=== PATIENT | female | born 1955 | race Caucasian/White ===

== ENCOUNTER → 2018-08-07 | Outpatient (CLI) | payer OTHER, MEDICAID ==
[~2018-08-07] MED LIST: ASPIRIN325 PO; KLONOPIN0.5 MG PO; LISINOPRIL-HCT1 EACH PO; PREDNISONE 10 M10 MG PO; SPIRIVA INH; SYMBICORT160 MCG/4. INH; ULTRAM 50MG TAB50 MG PO; ZOCOR 10 MG TAB10 MG PO
--- NOTE | 2018-09-17 15:56 | PAINCON ---
[address] [address] PAIN MANAGEMENT CONSULTATION Name: FERNANDEZ FORBES Room: [facility] Deborah#: [id number] Admission: 08/07/18 Attend Phys: Missy Wade MD Discharge: Date of : 55 Report #: [id number] THIS REPORT FOR: //name// CC: Missy Patton DATE OF SERVICE: 08/07/2018 CHIEF COMPLAINT: Back pain. HISTORY OF PRESENT ILLNESS: The patient is a 63-year-old female who has been referred to the pain clinic for evaluation. The patient is having pain in her low back as well as pain into both legs, left side more problematic than the right. She is experiencing continuous cramping sensation. Some pain that radiates down into her legs into her feet. She is currently on a steroid taper. This is her second treatment of a Medrol dose type steroid regimen. Rates her pain as a 6/10. Has tried tramadol to help control the pain. Did try tizanidine, but did not feel that this medication was very helpful. Has had an MRI. MRI showed an annular tear and a protrusion at L5-S1 which caused some mass effect on the exiting L5 nerve root. She denies any trauma. She woke up about one month ago and noticed that the pain was there. It was continued to be problematic. Limited her ability to engage in activities of daily living such as walking up and down stairs. She described it as constant, cramping and stabbing. ALLERGIES: No known drug allergies. MEDICATIONS: Aspirin 325 mg, Symbicort 160/4.5 two puffs twice daily, Klonopin 0.5 mg b.i.d., lisinopril/hydrochlorothiazide 10/12.5, prednisone 10 mg tablets daily, Zocor 10 mg, Spiriva inhaler 2 puffs, Ultram 50 mg b.i.d. PAST MEDICAL HISTORY: Tubal ligation, right knee replacement, septic on life support, one month rehab, fractured left hip 2016, uncontrollable diarrhea 2017. C. diff 2017, hospitalized x2, 03/2018. COPD, anxiety, lumbar radiculopathy, right low back, hypertension, hyperlipidemia, chronic respiratory failure history, hypoxia, hospitalized with pneumonia on numerous occasions. PAST SURGICAL HISTORY: Elbow surgery in 2007, carpal tunnel release 2001, hysterectomy in 1985. Shaved biopsy in neck 2011. REVIEW OF SYSTEMS: Fatigue, weakness, headaches, sore throat, voice changes, shortness of breath with walking flat, chronic frequent coughs, painful bowel movements, constipation, wakens at night to urinate, numbness and tingling sensation, joint pain, joint stiffness, weakness of muscles and joints, muscle pain, cramps, back pain, difficulty walking, [place] [address] PAIN MANAGEMENT CONSULTATION Name: FERNANDEZ FORBES Room: [facility]#: [id number] Admission: 08/07/18 Attend Phys: Missy Wade MD Discharge: Date of : 55 Report #: [id number] LABORATORY DATA: MRI of the lumbar spine dated 07/08/2018. 1. L2-L3, there is no significant disk bulge or herniation. There is no significant spinal stenosis. 2. L3-L4, there is no significant disk bulge or herniation. There is no significant spinal stenosis. 3. L4-L5 mild disk bulging. Effacement of the thecal sac. No high-grade stenosis. 4. L5-S1 small right lateral annular tear and protrusion extending into the right neural foramen. Moderate mass effect upon the exiting L4-L5 nerve root noted. PAIN CLINIC ASSESSMENT/PQRS: 1. History of osteoarthritis. The patient is not being treated for osteoarthritis or rheumatoid arthritis. 2. Height 5 feet 3 inches, weight 87 pounds, BMI is 15.4. 3. Vital signs: Blood pressure 90/63, heart rate 92, respiratory rate 16, room air saturation 94%, temperature 98.3. 4. Pain intensity 6/10. 5. Fall risk. The patient has not fallen. 6. Blood thinner. The patient is not on a blood thinning medication. 7. Hypertension. The patient is being treated for hypertension. 8. Opioid therapy greater than 6 weeks. The patient is using tramadol to help control the pain. 9. Blood thinner. The patient is not on a blood thinning medication. 10. Hypertension. The patient is being treated for hypertension, risk assessment tool 11. Functional assessment tool. 12. Recreational drug use. Pain impact score 34/70. 13. Recreational drug use. The patient denies use of recreational drugs. 14. Tobacco: The patient smokes 1 pack of cigarettes per day and has smoked for the last 50 years. We discussed the problems with opioid medications and pain. 15. Alcohol: The patient denies use of alcoholic beverages on a regular basis. PHYSICAL EXAMINATION: GENERAL: The patient is a small statured female. Affect is appropriate. Speech is fluent. HEENT: Normocephalic, atraumatic. Extraocular muscles intact. Sclerae nonicteric. Mucous membranes are moist. The patient without JVD or adenopathy. LUNGS: Decreased breath sounds. HEART: Regular rate. ABDOMEN: Scaphoid, Bowel sounds present. EXTREMITIES: Upper extremity muscle strength is judged to be 4+/5 for the major muscle groups in the upper extremity. Lower extremity muscle strength is judged to be 4+/5 for the major muscle groups in the lower extremity. The patient has pain and discomfort in lower portion of her back [place] [address] PAIN MANAGEMENT CONSULTATION Name: FERNANDEZ FORBES Room: [facility]#: [id number] Admission: 08/07/18 Attend Phys: Missy Wade MD Discharge: Date of : 55 Report #: [id number] into her legs. MUSCULOSKELETAL: The patient complains of pain and discomfort in the low back area as well as some pain in the anterior portion of her legs in the L2-L3 area. MRI findings would indicate pain and discomfort in the L5-S1 area. IMPRESSION: 1. Lumbar radicular pain, low back area, left as well as right. 2. Tubal ligation. 3. Right knee replacement, septic on life support, one month rehab. 4. Fractured left hip 2016. 5. Uncontrollable diarrhea 2016. 6. C. diff 2018, hospitalized x2, 03/2018. 7. COPD. 8. Anxiety. 9. Lumbar radiculopathy, right low back. 10. Hypertension. 11. Hyperlipidemia. 12. Chronic respiratory failure history. 13. Hypoxia, hospitalized with pneumonia on numerous occasions. RECOMMENDATION: The patient continues to have pain and discomfort. We will consider the possibility of lumbar epidural steroid injection in the future. Risks and benefits of an epidural steroid injection were discussed. They include but are not limited to infection, increased muscle soreness, headache, bleeding, worsening of pain, no improvement in pain. The patient will return to the pain clinic for additional treatment in the near future. <ELECTRONICALLY SIGNED> By: Missy Wade MD 09/17/18 [id number] [id number]. Mil Wade MD /nt
== END ==
LOC: M.PC 04:50
DX: M54.16 Radiculopathy, lumbar region (principal); J44.9 Chronic obstructive pulmonary disease, unspecified; I10 Essential (primary) hypertension; F41.9 Anxiety disorder, unspecified; E78.5 Hyperlipidemia, unspecified; R09.02 Hypoxemia

== ENCOUNTER → 2018-08-26 | Outpatient (CLI) | payer OTHER, MEDICAID ==
--- NOTE | 2018-09-17 16:20 | PAINCON ---
[address] [address] PAIN MANAGEMENT CONSULTATION Name: FERNANDEZ FORBES Room: [facility] MarnieJohnnieBrook#: [id number] Admission: 08/26/18 Attend Phys: Missy Wade MD Discharge: Date of : 55 Report #: [id number] THIS REPORT FOR: //name// CC: Silvia Patton MD DATE OF SERVICE: 08/26/2018 CHIEF COMPLAINT: Right low back pain. HISTORY OF PRESENT ILLNESS: The patient is a 63-year-old female who has been seen in the pain clinic for lumbar radiculopathy. The patient continued to have some pain and discomfort in the low back area. It radiated down into both legs. Left side was most problematic. She had been experiencing some significant pain in the low back area with cramping. The patient states that she has been treated with Medrol Dosepak. This is her third course, she state that the pain has improved somewhat involving her low back and left leg. She feels that tramadol has been helpful. Her MRI showed an annular tear and protrusion at L5-S1, which was causing mass effect on the exiting L5 nerve root. The patient has not had trauma. She has a small later in stature. Overall, she feels that the pain continues to improve and seems to be heading in the correct direction. She has had no change in bowel or bladder function. ALLERGIES: No known drug allergies. MEDICATIONS: Aspirin 81 mg, 2. Symbicort 160/4.5 two puffs b.i.d., Klonopin 0.5 mg b.i.d., Lisinopril/hydrochlorothiazide 10/12.5 mg, prednisone 10 mg tablets tapering on a daily basis, Zocor 10 mg, Spiriva inhaler 2 puffs, Ultram 50 mg b.i.d. PAIN CLINIC ASSESSMENT/PQRS: 1. History of osteoarthritis. The patient is not being treated for osteoarthritis or rheumatoid arthritis. History of osteoarthritis involving the right knee with replacement. 2. Height 5 feet 3 inches, weight 89 pounds, BMI is 15.8. 3. Vital signs: Blood pressure 138/84, heart rate 108, respiratory rate 16, room air saturation is 94%. 4. Pain intensity 2-310, down from 6/10. 5. Fall risk. The patient has not fallen in the last 3 months. 6. Blood thinner. The patient is not on a blood thinning medication. 7. Hypertension. The patient is being treated for hypertension. 8. Opioid therapy greater than 6 weeks. The patient is using tramadol to help control the pain. 9. Blood thinner. The patient is not on a blood thinning medication. 10. Hypertension. The patient is being [place] [address] PAIN MANAGEMENT CONSULTATION Name: FERNANDEZ FORBES Room: [facility]#: [id number] Admission: 08/26/18 Attend Phys: Missy Wade MD Discharge: Date of : 55 Report #: [id number] 11. Functional assessment tool. 12. Recreational drug use. The patient denies use of recreational drugs. 13. Pain impact score 34/70. 14. Tobacco: The patient does smoke tobacco. Discussed the benefits with the patient of tobacco cessation. 15. Alcohol: The patient denies use of alcoholic beverages on a regular basis. PHYSICAL EXAMINATION: GENERAL: The patient is a well-developed, well-nourished, small in stature, thin white female. HEENT: Normocephalic, atraumatic. Extraocular eye muscles intact. Sclerae nonicteric. Mucous membranes are moist. The patient without JVD, adenopathy. LUNGS: Decreased breath sounds. HEART: Regular rate. ABDOMEN: Scaphoid. Bowel sounds present. EXTREMITIES: Upper extremity muscle strength is judged to be 4+/5 for the major muscle groups in the upper extremity. The patient's muscle strength in the lower extremity, judged to be 4+/5 in the lower muscles in the lower extremity. She does have some pain and discomfort in the left leg with pain in the sciatic term root dermatomal distribution improving. The patient has some more ecchymotic air ecchymotic areas on her left and right forearm and some areas, which appear to show easy bruising. IMPRESSION: 1. Lumbar radicular pain, low back area, left as well as the right. 2. Tubal ligation. 3. Right knee replacement, septic on life support 1 month of rehabilitation. 4. Fractured left hip in 2017. 5. Uncontrolled diarrhea in 2017. 6. Clostridium difficile 2018, hospitalized x 2. 7. Chronic obstructive pulmonary disease. 8. Anxiety. 9. Lumbar radicular pain, right low back. 10. Hypertension. 11. Hyperlipidemia. 12. Chronic respiratory failure. 13. Hypoxia hospitalized with pneumonia on numerous occasions. RECOMMENDATIONS: We discussed treatment options with the patient. At this juncture, she feels that things continue to be improved. She states this is the third course of steroids 10 mg on a tapering basis. Overall, she feels that things are better. We have discussed the possible options. At this juncture, since she is getting better. We will defer from an epidural steroid injection should her pain return after cessation of this last regimen of steroids. We will consider an epidural steroid injection. Hopefully, she will continue to improve. A script for tramadol 50 mg 1 p.o. t.i.d., total of 90 [place] [address] PAIN MANAGEMENT CONSULTATION Name: FERNANDEZ FORBES Room: [facility]#: [id number] Admission: 08/26/18 Attend Phys: Missy Wade MD Discharge: Date of : 55 Report #: [id number] been written. We would like to thank you for letting us participate in her care. We hope she continues to improve. <ELECTRONICALLY SIGNED> By: Missy Wade MD 09/17/18 1620 [id number] [id number]. Mil Wade MD /nt
== END ==
LOC: M.PC 05:03
DX: M54.16 Radiculopathy, lumbar region (principal); F41.9 Anxiety disorder, unspecified; I10 Essential (primary) hypertension; E78.5 Hyperlipidemia, unspecified; J44.9 Chronic obstructive pulmonary disease, unspecified; R19.7 Diarrhea, unspecified; J96.10 Chronic respiratory failure, unspecified whether with hypoxia or hypercapnia; A04.72 Enterocolitis due to Clostridium difficile, not specified as recurrent; Z87.81 Personal history of (healed) traumatic fracture; Z98.51 Tubal ligation status; Z96.651 Presence of right artificial knee joint